=== PATIENT | male | born 1930 | race Caucasian/White ===

== ENCOUNTER 2017-12-02 05:48 | Inpatient (IN) | payer MEDICARE, OTHER ==
[2017-12-02] MEDS ORDERED: Lactated Ringers 1,000 ML IV SCH (06:30)
[2017-12-02] MEDS ORDERED: MORPHINE SULFATE 10 MG/ML ONE (08:02)
[2017-12-02] MEDS ORDERED: Lactated Ringers 2,000 ML IV ONE (08:04)
[2017-12-02] MEDS ORDERED: Sodium Chloride 0.9% 500 ML IV ONE (08:13)
[2017-12-02] MEDS ORDERED: PHENYLEPHRINE HCL 10 MG in Dextrose 5%/Water IV Soln. 250 ML 250 ML IV SCH (08:15)
[2017-12-02 08:26] LABS: Hematocrit 38.6 % (42-50); Hemoglobin 12.5 gm/dl (12.5-18.0); Mean Cell Volume 87.5 fl (78-100); Mean Corpuscular Hemoglobin 28.3 pg (26-32); Mean Corpuscular Hgb Concent. 32.4 g/dl (32-36); Mean Platelet Volume 9.9 fl (6-9.5); Platelet Count 246 K/mm3 (150-450); Red Blood Count 4.41 M/mm3 (4.1-5.6); Red Cell Distribution Width 12.8 % (11.5-14.0); White Blood Count 9.9 K/mm3 (4.0-10.5)
[2017-12-02] MEDS ORDERED: Lactated Ringers 1,000 ML IV ONE ×2 (08:29→13:13)
--- NOTE | 2017-12-02 08:37 | XRAY ---
Indication: Incomplete colonoscopy. Possible perforation. History duodenal ulcer. Multiple contiguous axial images obtained through the abdomen and pelvis without contrast as ordered. Comparison: None Lung bases demonstrates moderate bibasilar dependent atelectasis. Minimal left base pleural thickening with tiny focus of calcified pleural plaquing in the posterior gutter. No consolidation or effusion. Heart is not enlarged. Small hiatal hernia. There is moderate amount of intra-abdominal free air. No free fluid. Noncontrasted stomach and bowel loops appear nonobstructed. Left kidney demonstrates 2 nonobstructing micro-calculi, largest 3 mm in the lower pole. Bilateral renal cysts, largest in the right upper pole measuring 7 cm. No hydronephrosis or hydroureter. 2 punctate calculi seen in the left posterior bladder. Enlarged prostate gland impresses on the base of the bladder. A few hepatic/splenic calcified granulomas. Remaining liver, gallbladder, pancreas, spleen, and adrenal glands appear unremarkable for noncontrast exam.. Moderate aortoiliac calcifications without AAA. Osseous structures intact with mild multilevel degenerative spondylosis and 5 mm L3 spondylolisthesis. Impression: 1. Intra-abdominal free air presumed from perforated bowel. No free fluid. 2. Nonobstructing left renal micro-calculi and urinary bladder micro-calculi. Bilateral renal cysts. 3. Left lung base pleural thickening with calcified pleural plaquing. 4. Small hiatal hernia. 5. 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 Comment: Immediate report will be given to the ordering clinician. CT DI 23.54
[2017-12-02 08:40] LABS: INR 1.09 (0.8-3.0)
[2017-12-02 08:43] LABS: PTT 25.3 SECONDS (24.1-36.1)
[2017-12-02 08:45] LABS: ALBUMIN 3.7 g/dL (3.5-5.0); ALKALINE PHOSPHATASE 79 U/L (38-126); BLOOD UREA NITROGEN 15 mg/dL (9-20); CHLORIDE 107 mmol/L (98-107); Carbon Dioxide 25 mmol/L (22-30); Creatinine 1 0.76 mg/dL (0.66-1.25); Glucose 128 mg/dL (74-106); SGOT/AST 37 U/L (17-59); SGPT/ALT 12 U/L (0-50); SODIUM 142 mmol/L (137-145); Total Protein 6.5 g/dL (6.3-8.2)
[2017-12-02 09:19] LABS: ABO TYPING O; Antibody Screen NEGATIVE (NEGATIVE); RH TYPING NEGATIVE
[2017-12-02 09:51] LABS: A-aADO2 183; ABG HEMOGLOBIN 11.4; ABG POTASSIUM 3.6 (3.5-5.1); ABG SITE ALINE; ARTERIAL BLD GAS O2 SATURATION 99.1 % (95-100); ARTERIAL BLOOD GAS BASE EXCESS -1.5 (-2.0-2.0); ARTERIAL BLOOD GAS FIO2 50 %; ARTERIAL BLOOD GAS PCO2 36 mmHg (35-45); ARTERIAL BLOOD GAS PO2 129 mmHg (75-100); ARTERIAL BLOOD GAS pH 7.41 (7.35-7.45); CARBOXYHEMOGLOBIN 1.4 % THgb (0.0-6.9); HCO3- 22.8 (22-28); HGB O2 SAT 96.5 g/dF (94-100); Methhemoglobin 1.2 % (1.4-1.5); paO2 pAO1 0.41
[2017-12-02] MEDS ORDERED: Magnesium Sulfate 1 GM/2 ML VIAL ONE (10:12)
[2017-12-02] MEDS ORDERED: DEMEROL 25MG SYRINGE IV ONE (11:10)
[2017-12-02] MEDS ORDERED: DEMEROL 25MG SYRINGE ONE (11:11)
--- NOTE | 2017-12-02 11:44 | CONS ---
CONSULT DATE: 12/02/2017 REASON FOR CONSULT: Colon perforation during colonoscopy. HISTORY: This 87 year-old male is a patient of Dr. Woody Flores who was undergoing screening colonoscopy when Dr. Flores was on his way out unable to complete the scope probably got to transverse colon due to tortuosity and noticed a colon perforation in the probably sigmoid colon. He called me immediately for operative intervention after a CT scan was performed which showed free air consistent with colon perforation. The patient does have a moderate amount of abdominal pain but which was improved with IV narcotic. PAST MEDICAL HISTORY: Peptic ulcer disease. PAST SURGICAL HISTORY: Surgery for perforated peptic ulcer. MEDICATIONS: Baby aspirin. ALLERGIES: SULFA. SOCIAL HISTORY: No tobacco. No alcohol. FAMILY HISTORY: Noncontributory. LAB DATA AND TESTS: CT scan with free air. PHYSICAL EXAMINATION: GENERAL: Moderate distress. HEENT: Sclera nonicteric. Extraocular movements intact. OG tube in place. CHEST: Nonlabored breathing. No crepitus. ABDOMEN: Distended, tense, mild diffuse tenderness. EXTREMITIES: No peripheral edema. ASSESSMENT: Iatrogenic colon perforation. PLAN: Plan for exploratory laparotomy with possible repair versus resection with possible reanastomosis vs. colostomy. I discussed in depth with the patient and family members about the risks and benefits of surgery and the potential need for colostomy. The patient really would like to avoid an ostomy if at all possible.
[2017-12-02] MEDS ORDERED: MORPHINE SULFATE 4 MG INJ ONE (11:45)
[2017-12-02] MEDS ORDERED: Morphine PCA 1 MG/ML 30 ML IV PRN ×2 (11:45→12:19)
[2017-12-02] MEDS ORDERED: MORPHINE SULFATE 4 MG INJ IV ONE (11:46)
[2017-12-02] MEDS ORDERED: TYLENOL 325 MG PO PRN (11:48)
[2017-12-02] MEDS ORDERED: FEVERALL 650 MG RC PRN (11:48)
--- NOTE | 2017-12-02 12:06 | PCM.HP ---
History of Present Illness - Chief Complaint Chief Complaint: routine History of Present Illness: is a 87 year old male who had complications related to a colonoscopy this morning, there was evidence of colon perforation at the time of colonoscopy, stat CT abd/pelvis showed free confirming perforation. Dr Popeye Leal immediately took the patient to the OR and performed a segmental sigmoid colon resection. His vitals are currently stable post-operatively in the ICU, oxygen saturation and heart rate are stable. He did not require any pressors during the procedure. He has no known medical problems and is quite active. - Review of Systems All Other Systems: Unable due to condition Medications & Allergies Home Medications: Home Medication List Aspirin EC 81 mg [Ecotrin 81 mg] 81 mg PO DAILY 11/30/17 [History Confirmed 12/02/17] Allergies/Adverse Reactions: Allergies Allergy/AdvReac Type Severity Reaction Status Date / Time Sulfa (Sulfonamide AdvReac Mild " felt run Verified 12/02/17 06:07 Antibiotics) down" - Past Medical History Past Medical History: No Neurological History: No Pertinent History ENT History: No Pertinent History Cardiac History: No Pertinent History Respiratory History: No Pertinent History Endocrine Medical History: No Pertinent History Musculoskelatal History: No Pertinent History GI Medical History: Ulcer History: No Pertinent History Pyscho-Social History: No Pertinent History Male Reproductive Disorders: No Pertinent History Comment: duodenal ulcer - Past Surgical History Past Surgical History: Yes Neuro Surgical History: No Pertinent History Cardiac History: No Pertinent History Respiratory Surgery: No Pertinent History GI Surgical History: Other Genitourinary Surgical Hx: No Pertinent History Musculskeletal Surgical Hx: No Pertinent History Male Surgical History: No Pertinent History Other Surgical History: PARTIAL STOMACH REMOVED FOR ULCER "at least 50 yrs ago", TONSILS - Social History Smoking Status: Never smoker Exposure to second hand smoke: No Alcohol: None Drug Use: none - Physical Exam Vital Signs: Vital Signs - 24 hr Temp Pulse Resp BP BP Pulse Ox 12/02/17 11:27 98.1 F 84 8 L 175/106 184/73 92 L 12/02/17 06:17 96.5 F 55 L 16 142/83 92 L 12/02/17 06:13 96.5 F 55 L 16 142/83 92 L Oxygen-Last 24 hours O2 Percentage 6 Liters = 44% Oxygen Flowrate (L/min)-RT 6 General Appearance: no apparent distress Neurologic Exam: other (patient slightly confused, currently awakening from anesthesia. extubated with no problems) Eye Exam: PERRL/EOMI, eyes nml inspection Respiratory Exam: normal breath sounds, lungs clear, No respiratory distress Cardiovascular Exam: regular rate/rhythm, normal heart sounds, normal peripheral pulses Gastrointestinal/Abdomen Exam: soft, normal bowel sounds, tenderness, other ( dressing c/d/i, REINIER drain in place), No mass Male Genitalia Exam: other (maradiaga anchored) Results - Labs Lab/Micro Results: Lab Results-Last 24 Hours 12/02/17 12/02/17 12/02/17 Range/Units 08:15 08:15 08:15 WBC 9.9 (4.0-10.5) K/mm3 RBC 4.41 (4.1-5.6) M/mm3 Hgb 12.5 (12.5-18.0) gm/dl Hct 38.6 L (42-50) % MCV 87.5 (78-100) fl MCH 28.3 (26-32) pg MCHC 32.4 (32-36) g/dl RDW 12.8 (11.5-14.0) % Plt Count 246 (150-450) K/mm3 MPV 9.9 H (6-9.5) fl PT 12.1 (8.83-12.87) SECONDS INR 1.09 (0.8-3.0) APTT 25.3 (24.1-36.1) SECONDS Puncture Site pCO2 (35-45) mmHg pO2 (75-100) mmHg Base Excess (-2.0-2.0) O2 Saturation (94-100) g/dF ABG pH (7.35-7.45) ABG HCO3 (22-28) ABG O2 Sat (Measured) (95-100) % Grover Test A-a Gradient a/A Ratio Hemoglobin Carboxyhemoglobin (0.0-6.9) % THgb Methemoglobin (1.4-1.5) % Temperature C POC O2 Flow Rate % Sodium 142 (137-145) mmol/L Potassium 4.0 (3.5-5.1) mmol/L Chloride 107 (98-107) mmol/L Carbon Dioxide 25 (22-30) mmol/L Anion Gap 13.0 (5-15) MEQ/L BUN 15 (9-20) mg/dL Creatinine 0.76 (0.66-1.25) mg/dL Estimated GFR > 60.0 ML/MIN Glucose 128 H (74-106) mg/dL Lactic Acid (0.4-2.0) Calcium 9.0 (8.4-10.2) mg/dL Magnesium (1.6-2.3) mg/dL Total Bilirubin 1.90 H (0.2-1.3) mg/dL AST 37 (17-59) U/L ALT 12 (0-50) U/L Alkaline Phosphatase 79 (38-126) U/L Serum Total Protein 6.5 (6.3-8.2) g/dL Albumin 3.7 (3.5-5.0) g/dL ABO Group Rh Factor Antibody Screen (NEGATIVE) Crossmatch (COMPATIBLE) 12/02/17 12/02/17 12/02/17 Range/Units 08:15 08:15 08:15 WBC (4.0-10.5) K/mm3 RBC (4.1-5.6) M/mm3 Hgb (12.5-18.0) gm/dl Hct (42-50) % MCV (78-100) fl MCH (26-32) pg MCHC (32-36) g/dl RDW (11.5-14.0) % Plt Count (150-450) K/mm3 MPV (6-9.5) fl PT (8.83-12.87) SECONDS INR (0.8-3.0) APTT (24.1-36.1) SECONDS Puncture Site pCO2 (35-45) mmHg pO2 (75-100) mmHg Base Excess (-2.0-2.0) O2 Saturation (94-100) g/dF ABG pH (7.35-7.45) ABG HCO3 (22-28) ABG O2 Sat (Measured) (95-100) % Grover Test A-a Gradient a/A Ratio Hemoglobin Carboxyhemoglobin (0.0-6.9) % THgb Methemoglobin (1.4-1.5) % Temperature C POC O2 Flow Rate % Sodium (137-145) mmol/L Potassium (3.5-5.1) mmol/L Chloride (98-107) mmol/L Carbon Dioxide (22-30) mmol/L Anion Gap (5-15) MEQ/L BUN (9-20) mg/dL Creatinine (0.66-1.25) mg/dL Estimated GFR ML/MIN Glucose (74-106) mg/dL Lactic Acid (0.4-2.0) Calcium (8.4-10.2) mg/dL Magnesium (1.6-2.3) mg/dL Total Bilirubin (0.2-1.3) mg/dL AST (17-59) U/L ALT (0-50) U/L Alkaline Phosphatase (38-126) U/L Serum Total Protein (6.3-8.2) g/dL Albumin (3.5-5.0) g/dL ABO Group O Rh Factor NEGATIVE Antibody Screen NEGATIVE (NEGATIVE) Crossmatch COMPATIBLE COMPATIBLE COMPATIBLE (COMPATIBLE) 12/02/17 12/02/17 12/02/17 Range/Units 08:15 08:36 09:41 WBC (4.0-10.5) K/mm3 RBC (4.1-5.6) M/mm3 Hgb (12.5-18.0) gm/dl Hct (42-50) % MCV (78-100) fl MCH (26-32) pg MCHC (32-36) g/dl RDW (11.5-14.0) % Plt Count (150-450) K/mm3 MPV (6-9.5) fl PT (8.83-12.87) SECONDS INR (0.8-3.0) APTT (24.1-36.1) SECONDS Puncture Site WILFRIDO pCO2 36 (35-45) mmHg pO2 129 H* (75-100) mmHg Base Excess -1.5 (-2.0-2.0) O2 Saturation 96.5 (94-100) g/dF ABG pH 7.41 (7.35-7.45) ABG HCO3 22.8 (22-28) ABG O2 Sat (Measured) 99.1 (95-100) % Grover Test NOT APPLICABLE A-a Gradient 183 a/A Ratio 0.41 Hemoglobin 11.4 Carboxyhemoglobin 1.4 (0.0-6.9) % THgb Methemoglobin 1.2 L (1.4-1.5) % Temperature 37.0 C POC O2 Flow Rate 50 % Sodium (137-145) mmol/L Potassium 3.6 (3.5-5.1) mmol/L Chloride (98-107) mmol/L Carbon Dioxide (22-30) mmol/L Anion Gap (5-15) MEQ/L BUN (9-20) mg/dL Creatinine (0.66-1.25) mg/dL Estimated GFR ML/MIN Glucose (74-106) mg/dL Lactic Acid 2.0 (0.4-2.0) Calcium (8.4-10.2) mg/dL Magnesium (1.6-2.3) mg/dL Total Bilirubin (0.2-1.3) mg/dL AST (17-59) U/L ALT (0-50) U/L Alkaline Phosphatase (38-126) U/L Serum Total Protein (6.3-8.2) g/dL Albumin (3.5-5.0) g/dL ABO Group Rh Factor Antibody Screen (NEGATIVE) Crossmatch COMPATIBLE (COMPATIBLE) 12/02/17 12/02/17 Range/Units 09:42 09:50 WBC (4.0-10.5) K/mm3 RBC (4.1-5.6) M/mm3 Hgb (12.5-18.0) gm/dl Hct (42-50) % MCV (78-100) fl MCH (26-32) pg MCHC (32-36) g/dl RDW (11.5-14.0) % Plt Count (150-450) K/mm3 MPV (6-9.5) fl PT (8.83-12.87) SECONDS INR (0.8-3.0) APTT (24.1-36.1) SECONDS Puncture Site pCO2 (35-45) mmHg pO2 (75-100) mmHg Base Excess (-2.0-2.0) O2 Saturation (94-100) g/dF ABG pH (7.35-7.45) ABG HCO3 (22-28) ABG O2 Sat (Measured) (95-100) % Grover Test A-a Gradient a/A Ratio Hemoglobin Carboxyhemoglobin (0.0-6.9) % THgb Methemoglobin (1.4-1.5) % Temperature C POC O2 Flow Rate % Sodium (137-145) mmol/L Potassium (3.5-5.1) mmol/L Chloride (98-107) mmol/L Carbon Dioxide (22-30) mmol/L Anion Gap (5-15) MEQ/L BUN (9-20) mg/dL Creatinine (0.66-1.25) mg/dL Estimated GFR ML/MIN Glucose (74-106) mg/dL Lactic Acid 1.8 (0.4-2.0) Calcium (8.4-10.2) mg/dL Magnesium 1.6 (1.6-2.3) mg/dL Total Bilirubin (0.2-1.3) mg/dL AST (17-59) U/L ALT (0-50) U/L Alkaline Phosphatase (38-126) U/L Serum Total Protein (6.3-8.2) g/dL Albumin (3.5-5.0) g/dL ABO Group Rh Factor Antibody Screen (NEGATIVE) Crossmatch (COMPATIBLE) - Radiology Impressions Radiology Exams & Impressions: Radiology Procedures Category Date Time Status ABDOMEN AND PELVIS W/0 CONTRAS [CT] Routine Exams 12/02/17 07:59 Completed - Other Procedures and Tests Respiratory Therapy 12/02/17 11:18 Oxygen NASAL CANNULA 4 lpm 12/02/17 11:19 Incentive Spirometry Assessmen TID Assessment/Plan (1) Perforated sigmoid colon Current Visit: Yes Status: Acute Assessment & Plan: ordered for Zosyn 3.375g IV q6hrs, patient did not appear to have gross contamination of peritoneal cavity at time of procedure. will monitor closely at this time, has a morphine BASEBALL WINDER for postoperative pain, was given magnesium 2g IV rider during surgery. will repeat labs in the am. currently he is hemodynamically stable. Code(s): K63.1 - PERFORATION OF INTESTINE (NONTRAUMATIC)
[2017-12-02] MEDS: Zosyn 3.375GM/100 Ml D5W 3.375 GM/100 ML IVPB IV SCH ×3 (12:12→23:36)
[2017-12-02] MEDS: Dextrose 5%-Lr IV Solution 1000 ML 1,000 ML IV SCH ×2 (12:18→23:35)
--- NOTE | 2017-12-02 12:23 | OP ---
SURGERY DATE/TIME: 12/02/2017 0855 PREOPERATIVE DIAGNOSIS: Iatrogenic colon perforation after colonoscopy. POSTOPERATIVE DIAGNOSIS: Sigmoid colon perforation. PROCEDURES: 1) Exploratory laparotomy. 2) Segmental sigmoid resection with colorectal anastomosis. 3) Flexible sigmoidoscopy. SURGEON: Popeye Leal M.D. ROUTE SERVICE REPRESENTATIVE SURGEON: Woody Flores M.D. ANESTHESIA: General. SPECIMEN: Segmental sigmoid colon and anastomotic ring. ESTIMATED BLOOD LOSS: 20. FINDINGS: Large 3 to 4 cm full thickness tear in the sigmoid colon near the rectosigmoid junction. PATIENT PRESENTATION: This patient was having a screening colonoscopy that was unable to be completed. There were no interventions performed and on the way out the endoscopist noticed seeing intra-abdominal fat and I was called for management of the colon perforation. After discussing risks and benefits of surgery with the patient and family the patient wishes to proceed. DESCRIPTION OF PROCEDURE: The patient was brought to the operating room and placed supine in lithotomy positioning, placed under general endotracheal anesthesia. The abdomen was prepped and draped in sterile fashion. Midline laparotomy was performed from a couple centimeters above the umbilicus down to the pubis with scalpel this was taken down to the fascia with electrocautery. The fascia was incised with electrocautery. The peritoneum was lifted up with clamps and incised sharply with Metzenbaum scissors. The abdomen was entered and then the peritoneum was opened up with electrocautery under direct visualization. Once the abdomen was opened the abdomen was explored. There was no contamination at all. The right colon, transverse colon and left colon appeared normal. The small bowel appeared normal. There was a large 3 to 4 cm full thickness perforation in the sigmoid colon at the rectosigmoid junction this was much too large for primary repair. Attention was then turned to perform segmental sigmoid resection. There were some adhesions to the left side wall and these were taken down with electrocautery. The left colon was freed up somewhat off of the pelvic side wall and the retroperitoneum along the line of Toldt. The sigmoid colon was completely freed from the side wall. Distal to the perforation a rent was made in the mesentery and the colon free off circumferentially. The colon was then stapled with contour stapler. The mesentery was taken proximally to good healthy colon above the perforation. The site of transection was planned several centimeters above the perforation and circumferentially freed off. Next, a 25 KD sizer was inserted through the perforation proximally to evaluate the proximal bowel. A 25 fit with minimal stretching however this was the largest size his colon could accommodate. A 25 EEA stapler was opened. The anvil was placed up through the rent in the colon and out the anti-mesenteric site 2 cm proximal to the planned transection point. After this was pushed out the colon was transected with a 75 EEA green load stapler and the specimen was handed off. A 25 sizer was then placed up through the rectum and fit well in the rectal stump. Next, the 25 EEA stapler was placed up into EEA stump. The pin was pushed out just anterior to the staple line and the anvil connected to the pin. The sigmoid colon laid completely flat with no twisting of the mesentery and the end-to-side anastomosis was created. The stapler was closed and fired and the stapler removed. The anastomosis appeared intact with definitely no tension at all. Next, the proximal bowel was clamped off and endoscope was advanced into the anus and rectum and the anastomosis evaluated. The anastomosis appeared completely intact with no active bleeding and there were no air bubbles in the belly in which the pelvis was filled with saline. The rectum was desufflated. The scope withdrawn. At this point everyone changed gown and gloves. The abdomen was then copiously irrigated and suctioned dry. A 10 REINIER was placed in the right lower quadrant down into the pelvis. The abdomen was closed with 0 PDS looped suture in a running fashion starting from the top and the bottom and tying the sutures in the middle. The skin was closed with georgina loosely with quarter-inch Iodoform packing in between. Dressing was applied. The patient was recovered and taken to PACU in stable condition.
--- NOTE | 2017-12-02 13:56 | OP ---
SURGERY DATE/TIME: 12/02/2017701 PREOPERATIVE DIAGNOSIS: Follow up screening colonoscopy. POSTOPERATIVE DIAGNOSIS: Inadvertent perforation of the sigmoid colon. PROCEDURE: Colonoscopy. SURGEON: Woody Flores M.D. ANESTHESIA: MAC by Eduard Womack CRNA. ESTIMATED BLOOD LOSS: Minimal. SPECIMENS: None. DESCRIPTION OF PROCEDURE: After informed written consent was obtained, the patient was taken to the endoscopy suite. He underwent monitored anesthesia and a digital rectal exam showed normal sphincter tone and no internal lesions. The scope was inserted into the rectum and the colonic mucosa was traversed with difficulty due to tortuosity and small caliber of colon and sigmoid region. Approximately the level of the hepatic flexure was reached and the scope was unable to be advanced any further. At this point the scope began to be withdrawn. In the lower sigmoid colon there was concern for perforation due to some blood in the lumen and visible fat. The scope was immediately removed and the patient was taken straight to the CT scan room for further evaluation of sigmoid perforation.
[2017-12-02] MEDS ORDERED: MORPHINE SULFATE 4 MG INJ IV PRN (14:51)
[2017-12-02] MEDS ORDERED: Quelicin Fliptop 200 MG/10 ML IV ONE (16:14)
[2017-12-02] MEDS ORDERED: DIPRIVAN 200 MG/20 ML IV ONE (16:14)
[2017-12-02] MEDS ORDERED: BRIDION 200MG/2ML IV ONE (16:14)
[2017-12-02] MEDS ORDERED: SUBLIMAZE 250 MCG/5 ML IV ONE (16:14)
[2017-12-02] MEDS ORDERED: PHENYLEPHRINE HCL IV ONE (16:14)
[2017-12-02] MEDS ORDERED: Amidate 20 MG/10 ML IV ONE (16:14)
[2017-12-02] MEDS ORDERED: MORPHINE SULFATE 10 MG/ML IV ONE (16:14)
[2017-12-02] MEDS ORDERED: Zofran 4 MG/2 ML VIAL IV ONE (16:14)
[2017-12-02] MEDS ORDERED: Decadron 4 MG INJ IV ONE (16:14)
[2017-12-02] MEDS ORDERED: ROBINUL IV ONE (16:14)
[2017-12-02] MEDS ORDERED: Zemuron 100 MG/10 ML IV ONE (16:14)
[2017-12-02] MEDS ORDERED: Versed 2 MG/2 ML Injection IV ONE (16:14)
[2017-12-03 04:58] LABS: BASOPHIL % 0.2 % (0.0-0.4); Basophil (Absolute #) 0.02 (0-0.4); Eosinophil % 0.1 % (0.00-5.0); Eosinophil (Absolute #) 0.01 (0-0.5); Hematocrit 37.8 % (42-50); Hemoglobin 12.1 gm/dl (12.5-18.0); Lymphocyte (Absolute #) 1.58 (1.0-4.6); Mean Cell Volume 88.9 fl (78-100); Mean Platelet Volume 10.3 fl (6-9.5); Monocyte (Absolute #) 0.69 (0.0-1.3); Monocytes % 5.7 % (0.0-12.0); Platelet Count 201 K/mm3 (150-450); Red Blood Count 4.25 M/mm3 (4.1-5.6); Red Cell Distribution Width 12.9 % (11.5-14.0); White Blood Count 12.2 K/mm3 (4.0-10.5)
[2017-12-03 05:08] LABS: Mean Corpuscular Hemoglobin 28.4 pg (26-32)
[2017-12-03 05:31] LABS: ALBUMIN 3.3 g/dL (3.5-5.0); ALKALINE PHOSPHATASE 55 U/L (38-126); ANION GAP 10.8 MEQ/L (5-15); BLOOD UREA NITROGEN 12 mg/dL (9-20); CHLORIDE 103 mmol/L (98-107); Calcium 8.6 mg/dL (8.4-10.2); Carbon Dioxide 28 mmol/L (22-30); Creatinine 1 0.77 mg/dL (0.66-1.25); Glucose 120 mg/dL (74-106); Potassium 4.2 mmol/L (3.5-5.1); SGOT/AST 41 U/L (17-59); SGPT/ALT 13 U/L (0-50); SODIUM 138 mmol/L (137-145)
[2017-12-03] MEDS: Zosyn 3.375GM/100 Ml D5W 3.375 GM/100 ML IVPB IV SCH ×4 (06:19→23:28)
--- NOTE | 2017-12-03 08:08 | PCM.NOTE ---
Date and Time: 12/03/17805 Subjective Assessment: patient doing well this morning, pain is controlled. has been restless through the night but he is alert and answering questions appropriately Objective Exam General Appearance: no apparent distress Neurologic Exam: alert, oriented x 3 Skin Exam: normal color, warm, dry Respiratory Exam: normal breath sounds, lungs clear, No respiratory distress Cardiovascular Exam: regular rate/rhythm, normal heart sounds Gastrointestinal/Abdomen Exam: soft, other (mild shadowing of dressing, soft. serosang. fluid in REINIER) OBJECTIVE DATA Vital Signs: Vital Signs - 24 hr Temp Pulse Resp BP BP BP Pulse Ox 12/03/17 07:00 61 17 122/60 93 L 12/03/17 06:51 14 90 L 12/03/17 06:50 14 86 L 12/03/17 04:00 98.5 F 62 9 L 109/51 95 12/03/17 01:18 93 L 12/03/17 00:01 67 12/02/17 23:43 98.2 F 71 14 93 L 12/02/17 23:42 94 L 12/02/17 23:00 66 12 133/63 107/54 94 L 12/02/17 22:00 75 17 138/104 94 L 12/02/17 21:00 67 12 133/63 95 12/02/17 20:00 98.3 F 72 19 125/62 94 L 12/02/17 19:59 75 20 96 12/02/17 19:00 71 14 118/55 94 L 12/02/17 17:51 73 14 118/55 122/64 94 L 12/02/17 16:59 77 21 143/78 95 12/02/17 15:50 98 F 76 16 147/77 94 L 12/02/17 14:52 98.1 F 74 18 132/82 132/99 93 L 12/02/17 14:16 74 18 93 L 12/02/17 14:00 80 14 154/67 154/75 94 L 12/02/17 12:54 79 14 141/75 156/79 95 12/02/17 12:30 75 12 141/75 150/89 93 L 12/02/17 12:00 84 16 157/89 155/92 92 L 12/02/17 11:27 98.1 F 84 8 L 175/106 184/73 92 L 12/02/17 11:15 98.1 F 91 H 14 175/106 220/124 94 L Oxygen-Last 24 hours O2 Percentage 5 Liters = 40% O2 Percentage 5 Liters = 40% O2 Percentage 4 Liters = 36% O2 Percentage 4 Liters = 36% O2 Percentage 4 Liters = 36% O2 Percentage 4 Liters = 36% O2 Percentage 4 Liters = 36% O2 Percentage 4 Liters = 36% O2 Percentage 4 Liters = 36% O2 Percentage 6 Liters = 44% O2 Percentage 6 Liters = 44% O2 Percentage 6 Liters = 44% O2 Percentage 6 Liters = 44% O2 Percentage 6 Liters = 44% O2 Percentage 6 Liters = 44% O2 Percentage 6 Liters = 44% O2 Percentage 6 Liters = 44% O2 Percentage 6 Liters = 44% O2 Percentage 6 Liters = 44% Oxygen Flowrate (L/min)-RT 6 Oxygen Flowrate (L/min)-RT 6 Oxygen Flowrate (L/min)-RT 6 Oxygen Flowrate (L/min)-RT 6 Oxygen Flowrate (L/min)-RT 6 Oxygen Flowrate (L/min)-RT 6 Oxygen Flowrate (L/min)-RT 6 Oxygen Flowrate (L/min)-RT 6 Oxygen Flowrate (L/min)-RT 6 Pain Assessment - Last Documented Pain Intensity 7 Pain Scale Used 0-10 Pain Scale Intake and Output: Intake & Output 11/30/17 12/01/17 12/02/17 12/03/17 11:59 11:59 11:59 11:59 Intake Total 1915 Output Total 1665 Balance 250 Weight 71.3 kg 75.6 kg Lab Results: Lab Results-Last 24 Hours 12/02/17 12/02/17 12/02/17 Range/Units 08:15 08:15 08:15 WBC 9.9 (4.0-10.5) K/mm3 RBC 4.41 (4.1-5.6) M/mm3 Hgb 12.5 (12.5-18.0) gm/dl Hct 38.6 L (42-50) % MCV 87.5 (78-100) fl MCH 28.3 (26-32) pg MCHC 32.4 (32-36) g/dl RDW 12.8 (11.5-14.0) % Plt Count 246 (150-450) K/mm3 MPV 9.9 H (6-9.5) fl Gran % (36.0-66.0) % Eos # (Auto) (0-0.5) Absolute Lymphs (auto) (1.0-4.6) Absolute Monos (auto) (0.0-1.3) Lymphocytes % (24.0-44.0) % Monocytes % (0.0-12.0) % Eosinophils % (0.00-5.0) % Basophils % (0.0-0.4) % Absolute Granulocytes (1.4-6.9) Basophils # (0-0.4) PT 12.1 (8.83-12.87) SECONDS INR 1.09 (0.8-3.0) APTT 25.3 (24.1-36.1) SECONDS Puncture Site pCO2 (35-45) mmHg pO2 (75-100) mmHg Base Excess (-2.0-2.0) O2 Saturation (94-100) g/dF ABG pH (7.35-7.45) ABG HCO3 (22-28) ABG O2 Sat (Measured) (95-100) % Grover Test A-a Gradient a/A Ratio Hemoglobin Carboxyhemoglobin (0.0-6.9) % THgb Methemoglobin (1.4-1.5) % Temperature C POC O2 Flow Rate % Sodium 142 (137-145) mmol/L Potassium 4.0 (3.5-5.1) mmol/L Chloride 107 (98-107) mmol/L Carbon Dioxide 25 (22-30) mmol/L Anion Gap 13.0 (5-15) MEQ/L BUN 15 (9-20) mg/dL Creatinine 0.76 (0.66-1.25) mg/dL Estimated GFR > 60.0 ML/MIN Glucose 128 H (74-106) mg/dL Lactic Acid (0.4-2.0) Calcium 9.0 (8.4-10.2) mg/dL Magnesium (1.6-2.3) mg/dL Total Bilirubin 1.90 H (0.2-1.3) mg/dL AST 37 (17-59) U/L ALT 12 (0-50) U/L Alkaline Phosphatase 79 (38-126) U/L Serum Total Protein 6.5 (6.3-8.2) g/dL Albumin 3.7 (3.5-5.0) g/dL ABO Group Rh Factor Antibody Screen (NEGATIVE) Crossmatch (COMPATIBLE) 12/02/17 12/02/17 12/02/17 Range/Units 08:15 08:15 08:15 WBC (4.0-10.5) K/mm3 RBC (4.1-5.6) M/mm3 Hgb (12.5-18.0) gm/dl Hct (42-50) % MCV (78-100) fl MCH (26-32) pg MCHC (32-36) g/dl RDW (11.5-14.0) % Plt Count (150-450) K/mm3 MPV (6-9.5) fl Gran % (36.0-66.0) % Eos # (Auto) (0-0.5) Absolute Lymphs (auto) (1.0-4.6) Absolute Monos (auto) (0.0-1.3) Lymphocytes % (24.0-44.0) % Monocytes % (0.0-12.0) % Eosinophils % (0.00-5.0) % Basophils % (0.0-0.4) % Absolute Granulocytes (1.4-6.9) Basophils # (0-0.4) PT (8.83-12.87) SECONDS INR (0.8-3.0) APTT (24.1-36.1) SECONDS Puncture Site pCO2 (35-45) mmHg pO2 (75-100) mmHg Base Excess (-2.0-2.0) O2 Saturation (94-100) g/dF ABG pH (7.35-7.45) ABG HCO3 (22-28) ABG O2 Sat (Measured) (95-100) % Grover Test A-a Gradient a/A Ratio Hemoglobin Carboxyhemoglobin (0.0-6.9) % THgb Methemoglobin (1.4-1.5) % Temperature C POC O2 Flow Rate % Sodium (137-145) mmol/L Potassium (3.5-5.1) mmol/L Chloride (98-107) mmol/L Carbon Dioxide (22-30) mmol/L Anion Gap (5-15) MEQ/L BUN (9-20) mg/dL Creatinine (0.66-1.25) mg/dL Estimated GFR ML/MIN Glucose (74-106) mg/dL Lactic Acid (0.4-2.0) Calcium (8.4-10.2) mg/dL Magnesium (1.6-2.3) mg/dL Total Bilirubin (0.2-1.3) mg/dL AST (17-59) U/L ALT (0-50) U/L Alkaline Phosphatase (38-126) U/L Serum Total Protein (6.3-8.2) g/dL Albumin (3.5-5.0) g/dL ABO Group O Rh Factor NEGATIVE Antibody Screen NEGATIVE (NEGATIVE) Crossmatch COMPATIBLE COMPATIBLE COMPATIBLE (COMPATIBLE) 12/02/17 12/02/17 12/02/17 Range/Units 08:15 08:36 09:41 WBC (4.0-10.5) K/mm3 RBC (4.1-5.6) M/mm3 Hgb (12.5-18.0) gm/dl Hct (42-50) % MCV (78-100) fl MCH (26-32) pg MCHC (32-36) g/dl RDW (11.5-14.0) % Plt Count (150-450) K/mm3 MPV (6-9.5) fl Gran % (36.0-66.0) % Eos # (Auto) (0-0.5) Absolute Lymphs (auto) (1.0-4.6) Absolute Monos (auto) (0.0-1.3) Lymphocytes % (24.0-44.0) % Monocytes % (0.0-12.0) % Eosinophils % (0.00-5.0) % Basophils % (0.0-0.4) % Absolute Granulocytes (1.4-6.9) Basophils # (0-0.4) PT (8.83-12.87) SECONDS INR (0.8-3.0) APTT (24.1-36.1) SECONDS Puncture Site WILFRIDO pCO2 36 (35-45) mmHg pO2 129 H* (75-100) mmHg Base Excess -1.5 (-2.0-2.0) O2 Saturation 96.5 (94-100) g/dF ABG pH 7.41 (7.35-7.45) ABG HCO3 22.8 (22-28) ABG O2 Sat (Measured) 99.1 (95-100) % Grover Test NOT APPLICABLE A-a Gradient 183 a/A Ratio 0.41 Hemoglobin 11.4 Carboxyhemoglobin 1.4 (0.0-6.9) % THgb Methemoglobin 1.2 L (1.4-1.5) % Temperature 37.0 C POC O2 Flow Rate 50 % Sodium (137-145) mmol/L Potassium 3.6 (3.5-5.1) mmol/L Chloride (98-107) mmol/L Carbon Dioxide (22-30) mmol/L Anion Gap (5-15) MEQ/L BUN (9-20) mg/dL Creatinine (0.66-1.25) mg/dL Estimated GFR ML/MIN Glucose (74-106) mg/dL Lactic Acid 2.0 (0.4-2.0) Calcium (8.4-10.2) mg/dL Magnesium (1.6-2.3) mg/dL Total Bilirubin (0.2-1.3) mg/dL AST (17-59) U/L ALT (0-50) U/L Alkaline Phosphatase (38-126) U/L Serum Total Protein (6.3-8.2) g/dL Albumin (3.5-5.0) g/dL ABO Group Rh Factor Antibody Screen (NEGATIVE) Crossmatch COMPATIBLE (COMPATIBLE) 12/02/17 12/02/17 12/03/17 Range/Units 09:42 09:50 04:40 WBC 12.2 H (4.0-10.5) K/mm3 RBC 4.25 (4.1-5.6) M/mm3 Hgb 12.1 L (12.5-18.0) gm/dl Hct 37.8 L (42-50) % MCV 88.9 (78-100) fl MCH 28.4 (26-32) pg MCHC 32.0 (32-36) g/dl RDW 12.9 (11.5-14.0) % Plt Count 201 (150-450) K/mm3 MPV 10.3 H (6-9.5) fl Gran % 81.0 H (36.0-66.0) % Eos # (Auto) 0.01 (0-0.5) Absolute Lymphs (auto) 1.58 (1.0-4.6) Absolute Monos (auto) 0.69 (0.0-1.3) Lymphocytes % 13.0 L (24.0-44.0) % Monocytes % 5.7 (0.0-12.0) % Eosinophils % 0.1 (0.00-5.0) % Basophils % 0.2 (0.0-0.4) % Absolute Granulocytes 9.90 H (1.4-6.9) Basophils # 0.02 (0-0.4) PT (8.83-12.87) SECONDS INR (0.8-3.0) APTT (24.1-36.1) SECONDS Puncture Site pCO2 (35-45) mmHg pO2 (75-100) mmHg Base Excess (-2.0-2.0) O2 Saturation (94-100) g/dF ABG pH (7.35-7.45) ABG HCO3 (22-28) ABG O2 Sat (Measured) (95-100) % Grover Test A-a Gradient a/A Ratio Hemoglobin Carboxyhemoglobin (0.0-6.9) % THgb Methemoglobin (1.4-1.5) % Temperature C POC O2 Flow Rate % Sodium (137-145) mmol/L Potassium (3.5-5.1) mmol/L Chloride (98-107) mmol/L Carbon Dioxide (22-30) mmol/L Anion Gap (5-15) MEQ/L BUN (9-20) mg/dL Creatinine (0.66-1.25) mg/dL Estimated GFR ML/MIN Glucose (74-106) mg/dL Lactic Acid 1.8 (0.4-2.0) Calcium (8.4-10.2) mg/dL Magnesium 1.6 (1.6-2.3) mg/dL Total Bilirubin (0.2-1.3) mg/dL AST (17-59) U/L ALT (0-50) U/L Alkaline Phosphatase (38-126) U/L Serum Total Protein (6.3-8.2) g/dL Albumin (3.5-5.0) g/dL ABO Group Rh Factor Antibody Screen (NEGATIVE) Crossmatch (COMPATIBLE) 12/03/17 Range/Units 04:40 WBC (4.0-10.5) K/mm3 RBC (4.1-5.6) M/mm3 Hgb (12.5-18.0) gm/dl Hct (42-50) % MCV (78-100) fl MCH (26-32) pg MCHC (32-36) g/dl RDW (11.5-14.0) % Plt Count (150-450) K/mm3 MPV (6-9.5) fl Gran % (36.0-66.0) % Eos # (Auto) (0-0.5) Absolute Lymphs (auto) (1.0-4.6) Absolute Monos (auto) (0.0-1.3) Lymphocytes % (24.0-44.0) % Monocytes % (0.0-12.0) % Eosinophils % (0.00-5.0) % Basophils % (0.0-0.4) % Absolute Granulocytes (1.4-6.9) Basophils # (0-0.4) PT (8.83-12.87) SECONDS INR (0.8-3.0) APTT (24.1-36.1) SECONDS Puncture Site pCO2 (35-45) mmHg pO2 (75-100) mmHg Base Excess (-2.0-2.0) O2 Saturation (94-100) g/dF ABG pH (7.35-7.45) ABG HCO3 (22-28) ABG O2 Sat (Measured) (95-100) % Grover Test A-a Gradient a/A Ratio Hemoglobin Carboxyhemoglobin (0.0-6.9) % THgb Methemoglobin (1.4-1.5) % Temperature C POC O2 Flow Rate % Sodium 138 (137-145) mmol/L Potassium 4.2 (3.5-5.1) mmol/L Chloride 103 (98-107) mmol/L Carbon Dioxide 28 (22-30) mmol/L Anion Gap 10.8 (5-15) MEQ/L BUN 12 (9-20) mg/dL Creatinine 0.77 (0.66-1.25) mg/dL Estimated GFR > 60.0 ML/MIN Glucose 120 H (74-106) mg/dL Lactic Acid (0.4-2.0) Calcium 8.6 (8.4-10.2) mg/dL Magnesium 2.0 (1.6-2.3) mg/dL Total Bilirubin 2.80 H (0.2-1.3) mg/dL AST 41 (17-59) U/L ALT 13 (0-50) U/L Alkaline Phosphatase 55 (38-126) U/L Serum Total Protein 6.0 L (6.3-8.2) g/dL Albumin 3.3 L (3.5-5.0) g/dL ABO Group Rh Factor Antibody Screen (NEGATIVE) Crossmatch (COMPATIBLE) Radiology Exams: Radiology Procedures Category Date Time Status ABDOMEN AND PELVIS W/0 CONTRAS [CT] Routine Exams 12/02/17 07:59 Completed Assessment/Plan (1) Perforated sigmoid colon Current Visit: Yes Status: Acute Assessment & Plan: up to chair today, continue zosyn at this time, will d/c maradiaga when up if does well. continue NG to LIS Code(s): K63.1 - PERFORATION OF INTESTINE (NONTRAUMATIC)
[2017-12-03] MEDS ORDERED: Morphine PCA 1 MG/ML 30 ML IV PRN (09:09)
[2017-12-03] MEDS: Dextrose 5%-Lr IV Solution 1000 ML 1,000 ML IV SCH ×2 (10:15→21:24)
[2017-12-03] MEDS: CEPACOL SORE THROAT LOZENGE PO PRN (10:27)
[2017-12-03] MEDS: MORPHINE SULFATE 4 MG INJ IV PRN ×2 (13:23→15:30)
[2017-12-03] MEDS: BENADRYL 50 MG/ML IV PRN ×2 (17:25→22:55)
[2017-12-04] MEDS: Zosyn 3.375GM/100 Ml D5W 3.375 GM/100 ML IVPB IV SCH ×3 (05:44→18:48)
[2017-12-04 05:51] LABS: BASOPHIL % 0.5 % (0.0-0.4); Basophil (Absolute #) 0.06 (0-0.4); Eosinophil % 0.7 % (0.00-5.0); Eosinophil (Absolute #) 0.09 (0-0.5); Granulocyte Absolute (ANC) 10.14 (1.4-6.9); Granulocytes % 79.6 % (36.0-66.0); Hematocrit 37.9 % (42-50); Lymphocyte (Absolute #) 1.64 (1.0-4.6); Lymphocytes % 12.9 % (24.0-44.0); Mean Corpuscular Hgb Concent. 31.7 g/dl (32-36); Mean Platelet Volume 10.2 fl (6-9.5); Monocytes % 6.3 % (0.0-12.0); Platelet Count 191 K/mm3 (150-450); Red Blood Count 4.26 M/mm3 (4.1-5.6); Red Cell Distribution Width 12.9 % (11.5-14.0); White Blood Count 12.7 K/mm3 (4.0-10.5)
[2017-12-04 05:58] LABS: Mean Corpuscular Hemoglobin 28.1 pg (26-32)
[2017-12-04 06:15] LABS: ALBUMIN 3.1 g/dL (3.5-5.0); BILIRUBIN,TOTAL 3.1 mg/dL (0.2-1.3); Total Protein 5.7 g/dL (6.3-8.2)
[2017-12-04 06:21] LABS: ALBUMIN 3.4 g/dL (3.5-5.0); ALKALINE PHOSPHATASE 67 U/L (38-126); ANION GAP 10.8 MEQ/L (5-15); BLOOD UREA NITROGEN 11 mg/dL (9-20); CHLORIDE 100 mmol/L (98-107); Calcium 8.7 mg/dL (8.4-10.2); Carbon Dioxide 31 mmol/L (22-30); Creatinine 1 0.78 mg/dL (0.66-1.25); Glucose 123 mg/dL (74-106); Potassium 3.8 mmol/L (3.5-5.1); SGOT/AST 51 U/L (17-59); SGPT/ALT 16 U/L (0-50); SODIUM 138 mmol/L (137-145); Total Protein 6.3 g/dL (6.3-8.2)
[2017-12-04] MEDS: CEPACOL SORE THROAT LOZENGE PO PRN (07:45)
[2017-12-04] MEDS: BENADRYL 50 MG/ML IV PRN ×2 (08:07→12:16)
--- NOTE | 2017-12-04 08:42 | PCM.NOTE ---
Date and Time: 12/04/17 0839 Subjective Assessment: doing well today, still has significant pain but controlled. has been up to the bathroom. no flatus Objective Exam General Appearance: no apparent distress, alert Respiratory Exam: normal breath sounds, lungs clear, No respiratory distress Cardiovascular Exam: regular rate/rhythm, normal heart sounds Gastrointestinal/Abdomen Exam: soft, other (dressing clean, dry and intact) Extremity Exam: normal inspection, normal range of motion OBJECTIVE DATA Vital Signs: Vital Signs - 24 hr Temp Pulse Resp BP Pulse Ox 12/04/17 07:03 97.8 F 71 22 147/64 96 12/04/17 03:00 98.4 F 76 24 162/71 94 L 12/03/17 23:00 98.4 F 73 18 135/59 96 12/03/17 19:52 98.6 F 64 20 166/105 94 L 12/03/17 19:25 68 18 92 L 12/03/17 16:38 98.3 F 66 20 145/65 12/03/17 16:00 71 12/03/17 14:51 73 13 113/48 94 L 12/03/17 11:54 98.7 F 63 14 146/62 95 12/03/17 10:00 60 18 113/72 94 L 12/03/17 09:00 56 L 18 122/60 96 Oxygen-Last 24 hours O2 Percentage 4 Liters = 36% O2 Percentage 4 Liters = 36% O2 Percentage 4 Liters = 36% O2 Percentage 4 Liters = 36% O2 Percentage 4 Liters = 36% O2 Percentage 3 Liters = 32% O2 Percentage 4 Liters = 36% O2 Percentage 5 Liters = 40% Oxygen Flowrate (L/min)-RT 4 Oxygen Flowrate (L/min)-RT 3 Oxygen Flowrate (L/min)-RT 4 Pain Assessment - Last Documented Pain Intensity 3 Pain Scale Used 0-10 Pain Scale Intake and Output: Intake & Output 12/01/17 12/02/17 12/03/17 12/04/17 11:59 11:59 11:59 11:59 Intake Total 1915 2224 Output Total 1665 1520 Balance 250 704 Weight 71.3 kg 75.6 kg Lab Results: Lab Results-Last 24 Hours 12/04/17 12/04/17 12/04/17 Range/Units 05:50 05:50 05:50 WBC 12.7 H (4.0-10.5) K/mm3 RBC 4.26 (4.1-5.6) M/mm3 Hgb 12.0 L (12.5-18.0) gm/dl Hct 37.9 L (42-50) % MCV 89.0 (78-100) fl MCH 28.1 (26-32) pg MCHC 31.7 L (32-36) g/dl RDW 12.9 (11.5-14.0) % Plt Count 191 (150-450) K/mm3 MPV 10.2 H (6-9.5) fl Gran % 79.6 H (36.0-66.0) % Eos # (Auto) 0.09 (0-0.5) Absolute Lymphs (auto) 1.64 (1.0-4.6) Absolute Monos (auto) 0.80 (0.0-1.3) Lymphocytes % 12.9 L (24.0-44.0) % Monocytes % 6.3 (0.0-12.0) % Eosinophils % 0.7 (0.00-5.0) % Basophils % 0.5 (0.0-0.4) % Absolute Granulocytes 10.14 H (1.4-6.9) Basophils # 0.06 (0-0.4) Sodium 138 (137-145) mmol/L Potassium 3.8 (3.5-5.1) mmol/L Chloride 100 (98-107) mmol/L Carbon Dioxide 31 H (22-30) mmol/L Anion Gap 10.8 (5-15) MEQ/L BUN 11 (9-20) mg/dL Creatinine 0.78 (0.66-1.25) mg/dL Estimated GFR > 60.0 ML/MIN Glucose 123 H (74-106) mg/dL Calcium 8.7 (8.4-10.2) mg/dL Total Bilirubin 3.10 H 3.10 H (0.2-1.3) mg/dL Direct Bilirubin 0 (0.0-0.4) mg/dL AST 51 49 (17-59) U/L ALT 16 15 (0-50) U/L Alkaline Phosphatase 67 64 (38-126) U/L Serum Total Protein 6.3 5.7 L (6.3-8.2) g/dL Albumin 3.4 L 3.1 L (3.5-5.0) g/dL Radiology Exams: Radiology Procedures Category Date Time Status ABDOMEN AND PELVIS W/0 CONTRAS [CT] Routine Exams 12/02/17 07:59 Completed Assessment/Plan (1) Perforated sigmoid colon Current Visit: Yes Status: Acute Assessment & Plan: progressing well, still has NG output, REINIER with serosang. output Code(s): K63.1 - PERFORATION OF INTESTINE (NONTRAUMATIC)
[2017-12-04] MEDS: Dextrose 5%-Lr IV Solution 1000 ML 1,000 ML IV SCH ×2 (08:45→21:01)
[2017-12-04] MEDS ORDERED: MEFOXIN 2 GM PREMIX** 2 GM/50 ML ML IV ONE (15:04)
[2017-12-04] MEDS: SUBLIMAZE 100 MCG/2 ML IV PRN ×2 (17:09→23:00)
[2017-12-04] MEDS: Zofran 4 MG/2 ML VIAL IV PRN (22:45)
[2017-12-04] MEDS: APRESOLINE 20 MG/ML INJ IV PRN (22:50)
[2017-12-05] MEDS: Zosyn 3.375GM/100 Ml D5W 3.375 GM/100 ML IVPB IV SCH ×5 (00:15→23:32)
[2017-12-05] MEDS: SUBLIMAZE 100 MCG/2 ML IV PRN ×3 (02:23→16:35)
[2017-12-05 06:08] LABS: BASOPHIL % 0.3 % (0.0-0.4); Basophil (Absolute #) 0.04 (0-0.4); Eosinophil % 0.8 % (0.00-5.0); Granulocytes % 81.9 % (36.0-66.0); Hematocrit 36.9 % (42-50); Hemoglobin 11.8 gm/dl (12.5-18.0); Lymphocyte (Absolute #) 1.37 (1.0-4.6); Lymphocytes % 11.1 % (24.0-44.0); Mean Cell Volume 88.3 fl (78-100); Mean Corpuscular Hemoglobin 28.2 pg (26-32); Mean Platelet Volume 10.7 fl (6-9.5); Monocyte (Absolute #) 0.73 (0.0-1.3); Monocytes % 5.9 % (0.0-12.0); Platelet Count 193 K/mm3 (150-450); Red Blood Count 4.18 M/mm3 (4.1-5.6); Red Cell Distribution Width 12.6 % (11.5-14.0); White Blood Count 12.3 K/mm3 (4.0-10.5)
[2017-12-05 06:25] LABS: ALBUMIN 3.3 g/dL (3.5-5.0); ALKALINE PHOSPHATASE 65 U/L (38-126); ANION GAP 10.2 MEQ/L (5-15); BLOOD UREA NITROGEN 7 mg/dL (9-20); CHLORIDE 99 mmol/L (98-107); Calcium 8.7 mg/dL (8.4-10.2); Carbon Dioxide 30 mmol/L (22-30); Creatinine 1 0.65 mg/dL (0.66-1.25); Glucose 133 mg/dL (74-106); Potassium 3.7 mmol/L (3.5-5.1); SGOT/AST 45 U/L (17-59); SGPT/ALT 17 U/L (0-50); SODIUM 135 mmol/L (137-145); Total Protein 6.2 g/dL (6.3-8.2)
[2017-12-05 06:32] LABS: Direct Bilirubin 0 mg/dL (0.0-0.4)
[2017-12-05] MEDS: Dextrose 5%-Lr IV Solution 1000 ML 1,000 ML IV SCH ×2 (08:18→20:10)
[2017-12-05] MEDS: CEPACOL SORE THROAT LOZENGE PO PRN ×2 (09:06→11:04)
--- NOTE | 2017-12-05 09:08 | PCM.NOTE ---
Date and Time: 12/05/17905 Subjective Assessment: pain is controlled, no nausea this am. walked x 3 yesterday. overall doing well. no flatus Objective Exam General Appearance: no apparent distress, alert Respiratory Exam: normal breath sounds, lungs clear, No respiratory distress Cardiovascular Exam: regular rate/rhythm, normal heart sounds Gastrointestinal/Abdomen Exam: soft, other (mild bowel sounds present), No distention Extremity Exam: normal inspection, normal range of motion OBJECTIVE DATA Vital Signs: Vital Signs - 24 hr Temp Pulse Resp BP BP Pulse Ox 12/05/17 07:19 98.4 F 78 16 159/75 93 L 12/05/17 04:00 98.5 F 72 14 167/82 94 L 12/05/17 00:00 98.8 F 76 16 172/80 94 L 12/04/17 22:00 74 198/89 12/04/17 20:00 89.6 F 72 16 183/80 94 L 12/04/17 19:12 74 17 94 L 12/04/17 15:00 98.4 F 70 20 183/77 96 12/04/17 10:39 97.8 F 78 20 144/80 96 Oxygen-Last 24 hours O2 Percentage 4 Liters = 36% O2 Percentage 4 Liters = 36% Oxygen Flowrate (L/min)-RT 3 Oxygen Flowrate (L/min)-RT 3 Oxygen Flowrate (L/min)-RT 3 Pain Assessment - Last Documented Pain Intensity 5 Pain Scale Used 0-10 Pain Scale Intake and Output: Intake & Output 12/02/17 12/03/17 12/04/17 12/05/17 11:59 11:59 11:59 11:59 Intake Total 1915 2224 2653 Output Total 1665 1520 2865 Balance 250 704 -212 Weight 71.3 kg 75.6 kg 75.1 kg 74.9 kg Lab Results: Lab Results-Last 24 Hours 12/02/17 12/05/17 12/05/17 Range/Units 10:19 05:30 05:30 WBC 12.3 H (4.0-10.5) K/mm3 RBC 4.18 (4.1-5.6) M/mm3 Hgb 11.8 L (12.5-18.0) gm/dl Hct 36.9 L (42-50) % MCV 88.3 (78-100) fl MCH 28.2 (26-32) pg MCHC 32.0 (32-36) g/dl RDW 12.6 (11.5-14.0) % Plt Count 193 (150-450) K/mm3 MPV 10.7 H (6-9.5) fl Gran % 81.9 H (36.0-66.0) % Eos # (Auto) 0.10 (0-0.5) Absolute Lymphs (auto) 1.37 (1.0-4.6) Absolute Monos (auto) 0.73 (0.0-1.3) Lymphocytes % 11.1 L (24.0-44.0) % Monocytes % 5.9 (0.0-12.0) % Eosinophils % 0.8 (0.00-5.0) % Basophils % 0.3 (0.0-0.4) % Absolute Granulocytes 10.10 H (1.4-6.9) Basophils # 0.04 (0-0.4) Sodium 135 L (137-145) mmol/L Potassium 3.7 (3.5-5.1) mmol/L Chloride 99 (98-107) mmol/L Carbon Dioxide 30 (22-30) mmol/L Anion Gap 10.2 (5-15) MEQ/L BUN 7 L (9-20) mg/dL Creatinine 0.65 L (0.66-1.25) mg/dL Estimated GFR > 60.0 ML/MIN Glucose 133 H (74-106) mg/dL Calcium 8.7 (8.4-10.2) mg/dL Total Bilirubin 2.70 H (0.2-1.3) mg/dL Direct Bilirubin 0 (0.0-0.4) mg/dL AST 45 (17-59) U/L ALT 17 (0-50) U/L Alkaline Phosphatase 65 (38-126) U/L Serum Total Protein 6.2 L (6.3-8.2) g/dL Albumin 3.3 L (3.5-5.0) g/dL Surg PTH Diagnosis See Note H Assessment/Plan (1) Perforated sigmoid colon Current Visit: Yes Status: Acute Assessment & Plan: currently on zosyn, wbc stable around 12,000 with no fevers. labs look good, bilirubin improved slightly today. will follow Code(s): K63.1 - PERFORATION OF INTESTINE (NONTRAUMATIC)
[2017-12-05] MEDS: ENOXAPARIN SODIUM SQ SCH (11:03)
[2017-12-05] MEDS: BENADRYL 50 MG/ML IV PRN (12:06)
[2017-12-05] MEDS: Zofran 4 MG/2 ML VIAL IV PRN (19:02)
--- NOTE | 2017-12-05 20:48 | XRAY ---
Indication: NG tube placement. Comparison: None Portable chest demonstrates NG tube tip at the GE junction. Lungs are underinflated with minimal bibasilar atelectasis. Remaining lungs clear. Heart is not enlarged. Bony thorax intact with osteopenia and degenerative changes. Impression: 1. NG tube tip GE junction. 2. Nonacute underinflated chest. Comment: Preliminary interpretation was made by [facility]. No discrepancy.
[2017-12-06] MEDS: Zofran 4 MG/2 ML VIAL IV PRN ×2 (00:26→17:51)
[2017-12-06] MEDS: Zosyn 3.375GM/100 Ml D5W 3.375 GM/100 ML IVPB IV SCH ×3 (05:24→17:19)
[2017-12-06 05:46] LABS: BASOPHIL % 0.6 % (0.0-0.4); Basophil (Absolute #) 0.05 (0-0.4); Eosinophil % 1.5 % (0.00-5.0); Eosinophil (Absolute #) 0.13 (0-0.5); Granulocyte Absolute (ANC) 6.49 (1.4-6.9); Granulocytes % 75.4 % (36.0-66.0); Hematocrit 33.4 % (42-50); Hemoglobin 10.8 gm/dl (12.5-18.0); Lymphocyte (Absolute #) 1.34 (1.0-4.6); Lymphocytes % 15.6 % (24.0-44.0); Mean Cell Volume 88.1 fl (78-100); Mean Corpuscular Hgb Concent. 32.3 g/dl (32-36); Mean Platelet Volume 10.4 fl (6-9.5); Monocyte (Absolute #) 0.59 (0.0-1.3); Monocytes % 6.9 % (0.0-12.0); Platelet Count 208 K/mm3 (150-450); Red Blood Count 3.79 M/mm3 (4.1-5.6); Red Cell Distribution Width 12.6 % (11.5-14.0); White Blood Count 8.6 K/mm3 (4.0-10.5)
[2017-12-06 05:50] LABS: Mean Corpuscular Hemoglobin 28.4 pg (26-32)
[2017-12-06 06:05] LABS: ALBUMIN 2.8 g/dL (3.5-5.0); ALKALINE PHOSPHATASE 59 U/L (38-126); BLOOD UREA NITROGEN 7 mg/dL (9-20); CHLORIDE 98 mmol/L (98-107); Calcium 8.5 mg/dL (8.4-10.2); Carbon Dioxide 29 mmol/L (22-30); Creatinine 1 0.66 mg/dL (0.66-1.25); Glucose 122 mg/dL (74-106); Potassium 3.6 mmol/L (3.5-5.1); SGOT/AST 35 U/L (17-59); SGPT/ALT 15 U/L (0-50); SODIUM 132 mmol/L (137-145); Total Protein 5.4 g/dL (6.3-8.2)
[2017-12-06 06:11] LABS: Direct Bilirubin 0 mg/dL (0.0-0.4)
[2017-12-06] MEDS: Dextrose 5%-Lr IV Solution 1000 ML 1,000 ML IV SCH ×2 (06:44→17:25)
--- NOTE | 2017-12-06 08:50 | PCM.NOTE ---
Date and Time: 12/06/17 0847 Subjective Assessment: pain is controlled, has had some nausea. thinks he has passed a very small amount of flatus Objective Exam General Appearance: no apparent distress, alert Respiratory Exam: normal breath sounds, lungs clear, No respiratory distress Cardiovascular Exam: regular rate/rhythm, normal heart sounds Gastrointestinal/Abdomen Exam: soft, other (soft, decreased bowel sounds present ) Extremity Exam: normal inspection, normal range of motion OBJECTIVE DATA Vital Signs: Vital Signs - 24 hr Temp Pulse Resp BP BP Pulse Ox 12/06/17 08:10 98.1 F 68 20 146/64 96 12/06/17 07:18 20 97 12/06/17 04:15 99.8 F 70 20 180/80 95 12/05/17 23:42 99.5 F 64 18 152/73 95 12/05/17 20:20 62 18 95 12/05/17 19:19 98.2 F 72 16 168/74 93 L 12/05/17 16:31 98.2 F 84 20 166/80 95 12/05/17 11:31 98.1 F 66 20 167/84 93 L Oxygen-Last 24 hours O2 Percentage 4 Liters = 36% O2 Percentage 3 Liters = 32% O2 Percentage 3 Liters = 32% O2 Percentage 3 Liters = 32% O2 Percentage 3 Liters = 32% O2 Percentage 4 Liters = 36% Pain Assessment - Last Documented Pain Intensity 3 Pain Scale Used 0-10 Pain Scale Intake and Output: Intake & Output 12/03/17 12/04/17 12/05/17 12/06/17 11:59 11:59 11:59 11:59 Intake Total 1915 2224 2653 2544 Output Total 1665 1520 3065 2400 Balance 250 704 -412 144 Weight 75.6 kg 75.1 kg 74.9 kg Lab Results: Lab Results-Last 24 Hours 12/06/17 12/06/17 Range/Units 05:25 05:25 WBC 8.6 (4.0-10.5) K/mm3 RBC 3.79 L (4.1-5.6) M/mm3 Hgb 10.8 L (12.5-18.0) gm/dl Hct 33.4 L (42-50) % MCV 88.1 (78-100) fl MCH 28.4 (26-32) pg MCHC 32.3 (32-36) g/dl RDW 12.6 (11.5-14.0) % Plt Count 208 (150-450) K/mm3 MPV 10.4 H (6-9.5) fl Gran % 75.4 H (36.0-66.0) % Eos # (Auto) 0.13 (0-0.5) Absolute Lymphs (auto) 1.34 (1.0-4.6) Absolute Monos (auto) 0.59 (0.0-1.3) Lymphocytes % 15.6 L (24.0-44.0) % Monocytes % 6.9 (0.0-12.0) % Eosinophils % 1.5 (0.00-5.0) % Basophils % 0.6 (0.0-0.4) % Absolute Granulocytes 6.49 (1.4-6.9) Basophils # 0.05 (0-0.4) Sodium 132 L (137-145) mmol/L Potassium 3.6 (3.5-5.1) mmol/L Chloride 98 (98-107) mmol/L Carbon Dioxide 29 (22-30) mmol/L Anion Gap 9.0 (5-15) MEQ/L BUN 7 L (9-20) mg/dL Creatinine 0.66 (0.66-1.25) mg/dL Estimated GFR > 60.0 ML/MIN Glucose 122 H (74-106) mg/dL Calcium 8.5 (8.4-10.2) mg/dL Total Bilirubin 2.00 H (0.2-1.3) mg/dL Direct Bilirubin 0 (0.0-0.4) mg/dL AST 35 (17-59) U/L ALT 15 (0-50) U/L Alkaline Phosphatase 59 (38-126) U/L Serum Total Protein 5.4 L (6.3-8.2) g/dL Albumin 2.8 L (3.5-5.0) g/dL Radiology Exams: Radiology Procedures Category Date Time Status CHEST 1 VIEW (PORTABLE) Stat Exams 12/05/17 09:07 Completed Multi-Disciplinary Progress Notes: Multi-Disciplinary Progress Notes 12/05/17 21:45 Respiratory Note by PhoebeAlfredito WENT TO DO I.S. W/ PT AND HE HAD JUST FALLEN ASLEEP ACCORDING TO PT FAMILY MEMBER. I TOLD HER TO HAVE NURSING CALL ME WHEN PT WOKE UP AND I WLD DO I.S. W / HIM AT THAT TIME. Initialized on 12/05/17 21:45 - END OF NOTE Assessment/Plan (1) Perforated sigmoid colon Current Visit: Yes Status: Acute Assessment & Plan: continue zosyn, no changes at this time. Code(s): K63.1 - PERFORATION OF INTESTINE (NONTRAUMATIC)
[2017-12-06] MEDS: ENOXAPARIN SODIUM SQ SCH (10:41)
[2017-12-06] MEDS ORDERED: Reglan 10 MG/2 ML IV ONE (13:37)
[2017-12-06] MEDS: SUBLIMAZE 100 MCG/2 ML IV PRN (14:34)
[2017-12-07] MEDS: Zosyn 3.375GM/100 Ml D5W 3.375 GM/100 ML IVPB IV SCH ×5 (00:11→23:19)
[2017-12-07] MEDS: APRESOLINE 20 MG/ML INJ IV PRN (05:21)
[2017-12-07] MEDS: Dextrose 5%-Lr IV Solution 1000 ML 1,000 ML IV SCH ×2 (05:25→23:17)
[2017-12-07 06:07] LABS: BASOPHIL % 0.7 % (0.0-0.4); Basophil (Absolute #) 0.05 (0-0.4); Eosinophil % 2.8 % (0.00-5.0); Eosinophil (Absolute #) 0.21 (0-0.5); Granulocyte Absolute (ANC) 5.02 (1.4-6.9); Granulocytes % 67.2 % (36.0-66.0); Hematocrit 33.1 % (42-50); Hemoglobin 10.6 gm/dl (12.5-18.0); Lymphocyte (Absolute #) 1.49 (1.0-4.6); Lymphocytes % 19.9 % (24.0-44.0); Mean Cell Volume 88.7 fl (78-100); Mean Corpuscular Hemoglobin 28.4 pg (26-32); Mean Platelet Volume 10.4 fl (6-9.5); Monocytes % 9.4 % (0.0-12.0); Platelet Count 204 K/mm3 (150-450); Red Blood Count 3.73 M/mm3 (4.1-5.6); Red Cell Distribution Width 12.4 % (11.5-14.0); White Blood Count 7.5 K/mm3 (4.0-10.5)
[2017-12-07 06:23] LABS: ALBUMIN 2.8 g/dL (3.5-5.0); BILIRUBIN,TOTAL 1.7 mg/dL (0.2-1.3); Total Protein 5.4 g/dL (6.3-8.2)
[2017-12-07 06:25] LABS: ALBUMIN 3.1 g/dL (3.5-5.0); ALKALINE PHOSPHATASE 58 U/L (38-126); ANION GAP 9.2 MEQ/L (5-15); BLOOD UREA NITROGEN 7 mg/dL (9-20); CHLORIDE 100 mmol/L (98-107); Calcium 8.7 mg/dL (8.4-10.2); Carbon Dioxide 31 mmol/L (22-30); Creatinine 1 0.76 mg/dL (0.66-1.25); Glucose 117 mg/dL (74-106); Potassium 3.4 mmol/L (3.5-5.1); SGOT/AST 46 U/L (17-59); SGPT/ALT 27 U/L (0-50); SODIUM 137 mmol/L (137-145); Total Protein 5.8 g/dL (6.3-8.2)
--- NOTE | 2017-12-07 08:24 | PCM.NOTE ---
Date and Time: 12/07/17822 Subjective Assessment: patient reports some flatus, pain controlled. still having some hiccups at times but otherwise seems to be doing well. Objective Exam General Appearance: no apparent distress Respiratory Exam: normal breath sounds, lungs clear, No respiratory distress Cardiovascular Exam: regular rate/rhythm, normal heart sounds Gastrointestinal/Abdomen Exam: soft, normal bowel sounds, No distention Extremity Exam: normal inspection, normal range of motion OBJECTIVE DATA Vital Signs: Vital Signs - 24 hr Temp Pulse Resp BP BP Pulse Ox 12/07/17 06:45 63 18 94 L 12/07/17 04:00 97.9 F 65 14 183/84 94 L 12/07/17 00:00 99.2 F 61 16 173/78 95 12/06/17 20:00 98.8 F 61 20 123/95 123/95 95 12/06/17 19:55 65 20 92 L 12/06/17 16:26 69 20 173/79 98 12/06/17 16:00 98.2 F 67 167/84 170/79 96 12/06/17 14:39 96 12/06/17 12:24 98.2 F 67 20 170/79 96 Oxygen-Last 24 hours O2 Percentage 3 Liters = 32% O2 Percentage 3 Liters = 32% O2 Percentage 2 Liters = 28% O2 Percentage 4 Liters = 36% Oxygen Flowrate (L/min)-RT 3 Pain Assessment - Last Documented Pain Intensity 8 Pain Scale Used 0-10 Pain Scale Intake and Output: Intake & Output 12/04/17 12/05/17 12/06/17 12/07/17 11:59 11:59 11:59 11:59 Intake Total 2224 2653 2544 3819 Output Total 1520 3065 2800 3870 Balance 704 -412 -256 -51 Weight 75.1 kg 74.9 kg 75 kg Lab Results: Lab Results-Last 24 Hours 12/07/17 12/07/17 12/07/17 Range/Units 05:43 05:43 05:43 WBC 7.5 (4.0-10.5) K/mm3 RBC 3.73 L (4.1-5.6) M/mm3 Hgb 10.6 L (12.5-18.0) gm/dl Hct 33.1 L (42-50) % MCV 88.7 (78-100) fl MCH 28.4 (26-32) pg MCHC 32.0 (32-36) g/dl RDW 12.4 (11.5-14.0) % Plt Count 204 (150-450) K/mm3 MPV 10.4 H (6-9.5) fl Gran % 67.2 H (36.0-66.0) % Eos # (Auto) 0.21 (0-0.5) Absolute Lymphs (auto) 1.49 (1.0-4.6) Absolute Monos (auto) 0.70 (0.0-1.3) Lymphocytes % 19.9 L (24.0-44.0) % Monocytes % 9.4 (0.0-12.0) % Eosinophils % 2.8 (0.00-5.0) % Basophils % 0.7 (0.0-0.4) % Absolute Granulocytes 5.02 (1.4-6.9) Basophils # 0.05 (0-0.4) Sodium 137 (137-145) mmol/L Potassium 3.4 L (3.5-5.1) mmol/L Chloride 100 (98-107) mmol/L Carbon Dioxide 31 H (22-30) mmol/L Anion Gap 9.2 (5-15) MEQ/L BUN 7 L (9-20) mg/dL Creatinine 0.76 (0.66-1.25) mg/dL Estimated GFR > 60.0 ML/MIN Glucose 117 H (74-106) mg/dL Calcium 8.7 (8.4-10.2) mg/dL Magnesium 1.9 (1.6-2.3) mg/dL Total Bilirubin 1.70 H 1.60 H (0.2-1.3) mg/dL Direct Bilirubin 0 (0.0-0.4) mg/dL AST 47 46 (17-59) U/L ALT 27 27 (0-50) U/L Alkaline Phosphatase 58 58 (38-126) U/L Serum Total Protein 5.4 L 5.8 L (6.3-8.2) g/dL Albumin 2.8 L 3.1 L (3.5-5.0) g/dL Radiology Exams: Radiology Procedures Category Date Time Status CHEST 1 VIEW (PORTABLE) Stat Exams 12/05/17 09:07 Completed Assessment/Plan (1) Perforated sigmoid colon Current Visit: Yes Status: Acute Assessment & Plan: will d/c NG when ok with surgery, otherwise progressing well Code(s): K63.1 - PERFORATION OF INTESTINE (NONTRAUMATIC)
[2017-12-07] MEDS: ENOXAPARIN SODIUM SQ SCH (09:24)
[2017-12-07] MEDS: PROTONIX 40 MG IV IV SCH (09:24)
[2017-12-08] MEDS: APRESOLINE 20 MG/ML INJ IV PRN ×2 (00:44→20:01)
[2017-12-08] MEDS ORDERED: Reglan 10 MG/2 ML IV ONE (02:55)
[2017-12-08] MEDS: Zosyn 3.375GM/100 Ml D5W 3.375 GM/100 ML IVPB IV SCH ×4 (05:52→23:33)
[2017-12-08 06:33] LABS: ALBUMIN 3.2 g/dL (3.5-5.0); BILIRUBIN,TOTAL 1.1 mg/dL (0.2-1.3); Total Protein 6.1 g/dL (6.3-8.2)
--- NOTE | 2017-12-08 08:42 | PCM.NOTE ---
Date and Time: 12/08/17836 Subjective Assessment: Pt continues to have hiccups, although he has been able to sleep for an hour or two intermittently. He has had several episodes this morning and last night where he had a hard time catching his breath for several seconds due to the hiccups. He became quite alarmed at one point. He had several BMs last night. Tolerating CLD. minimal abd pain (some soreness in RLQ). Daughter notes some itchy rash on his back. - Review of Systems Constitutional: No Fever Abdominal/Gastrointestinal: Abdominal Pain Objective Exam General Appearance: no apparent distress, alert Neurologic Exam: oriented x 3, cooperative Skin Exam: normal color, warm, dry Ears, Nose, Throat Exam: moist mucous membranes Respiratory Exam: normal breath sounds, lungs clear, No crackles/rales, No rhonchi, No wheezing Cardiovascular Exam: regular rate/rhythm, normal heart sounds, No murmur Gastrointestinal/Abdomen Exam: soft, normal bowel sounds, tenderness (mild RLQ) , other (midline dressing c/d/i. REINIER drain with serosanguinous drainage in RLQ) , No distention, No mass, No guarding, No rebound Extremity Exam: normal inspection, No pedal edema, No swelling OBJECTIVE DATA Vital Signs: Vital Signs - 24 hr Temp Pulse Resp BP BP Pulse Ox 12/08/17 08:23 93 L 12/08/17 07:13 20 95 12/08/17 03:26 97.8 F 70 18 183/84 151/65 95 12/08/17 00:00 98.1 F 63 18 190/81 92 L 12/07/17 20:14 94 L 12/07/17 20:00 98.7 F 62 20 184/86 95 12/07/17 16:00 98.3 F 64 16 162/88 93 L 12/07/17 12:00 98.3 F 61 18 170/72 90 L Oxygen-Last 24 hours O2 Percentage 3 Liters = 32% O2 Percentage 3 Liters = 32% O2 Percentage 3 Liters = 32% O2 Percentage 3 Liters = 32% Pain Assessment - Last Documented Pain Intensity 3 Pain Scale Used 0-10 Pain Scale Intake and Output: Intake & Output 12/05/17 12/06/17 12/07/17 12/08/17 11:59 11:59 11:59 11:59 Intake Total 2658 4722 1519 991 Output Total 3065 9095 7094 570 Balance -830 -376 -125 747 Weight 74.9 kg 75 kg Lab Results: Lab Results-Last 24 Hours 12/08/17 Range/Units 05:45 Total Bilirubin 1.10 (0.2-1.3) mg/dL Direct Bilirubin 0 (0.0-0.4) mg/dL AST 53 (17-59) U/L ALT 34 (0-50) U/L Alkaline Phosphatase 62 (38-126) U/L Serum Total Protein 6.1 L (6.3-8.2) g/dL Albumin 3.2 L (3.5-5.0) g/dL Multi-Disciplinary Progress Notes: Multi-Disciplinary Progress Notes 12/07/17 10:59 Nutrition Note by Dorothy Nicole F/u Note: Pt remains NPO x 5 days. Recommend alt feeding method if unable to resume po intake. Will monitor and f/u prn. TAUNDREA Cadet Initialized on 12/07/17 10:59 - END OF NOTE 12/07/17 08:55 (created 12/07/17 12:55) Case Management Note by Iva Mirza DISCHARGE PLAN AGAIN REVIEWED WITH PT AND DAUGHTER. DAUGHTER AGAIN EMPHASIZES THAT PRIOR TO SURGERY, PT WAS EXTREMELY ACTIVE AND INDEPENDENT WITH ALL ADL'S, AND NOTED THAT PT HAS NEVER HAD TO USE OXYGEN PRIOR TO THIS VISIT. REPORTS THAT THEIR GOAL IS TO MAKE SURE THAT PT IS BACK TO PRIOR LEVEL OF FNX PRIOR TO DISCHARGE FROM OUR FACILITY. PT/DAUGHTER BOTH REQUEST REHAB STAY IN SWING BED PRIOR TO DISCHARGE HOME. DID DISCUSS SHORT TERM REHAB VIA SWING BED WITH AVERAGE SWING BED STAY OF 7-10 DAYS, WITH MAX OF 14 DAYS. PT/DAUGHTER VERBALIZED UNDERSTANDING, BOTH IN AGREEMENT. ALSO, PROVIDED DAUGHTER WITH INFORMATION ON TRANSPORTATION PROVIDERS AND SITTERS FOR HOME (FOR PT'S IF NEEDED). PT/DAUGHTER DENY ADDNL NEEDS AT PRESENT. WILL CONTINUE TO FOLLOW AND ASSESS FOR ALL DC NEEDS. Initialized on 12/07/17 12:55 - END OF NOTE Assessment/Plan (1) Perforated sigmoid colon Current Visit: Yes Status: Acute Assessment & Plan: Improving, NG is out. Bowels are moving. Tolerating some CLD. Code(s): K63.1 - PERFORATION OF INTESTINE (NONTRAUMATIC) (2) Intractable hiccups Current Visit: Yes Status: Acute Assessment & Plan: With some episodes of difficulty breathing - will try adding low dose gabapentin. Code(s): R06.6 - HICCOUGH
[2017-12-08] MEDS: Dextrose 5%-Lr IV Solution 1000 ML 1,000 ML IV SCH ×2 (10:04→22:14)
[2017-12-08] MEDS: Neurontin 100 MG PO SCH ×3 (10:09→21:35)
[2017-12-08] MEDS: ENOXAPARIN SODIUM SQ SCH (10:11)
[2017-12-08] MEDS: PROTONIX 40 MG IV IV SCH (10:11)
[2017-12-08] MEDS: ANUSOL-HC 2.5% CREAM 30 GM TP PRN (10:17)
[2017-12-08] MEDS ORDERED: SUBLIMAZE 100 MCG/2 ML IV PRN (17:22)
[2017-12-09] MEDS: Zosyn 3.375GM/100 Ml D5W 3.375 GM/100 ML IVPB IV SCH ×2 (05:26→12:18)
[2017-12-09 06:15] LABS: BILIRUBIN,TOTAL 0.8 mg/dL (0.2-1.3); Total Protein 5.5 g/dL (6.3-8.2)
[2017-12-09] MEDS: Dextrose 5%-Lr IV Solution 1000 ML 1,000 ML IV SCH (09:50)
[2017-12-09] MEDS: ENOXAPARIN SODIUM SQ SCH (09:51)
[2017-12-09] MEDS: Neurontin 100 MG PO SCH ×3 (09:51→22:24)
[2017-12-09] MEDS: PROTONIX 40 MG IV IV SCH (09:51)
[2017-12-09] MEDS ORDERED: NORCO 5/325 MG PO PRN (16:52)
--- NOTE | 2017-12-09 16:55 | PCM.NOTE ---
Date and Time: 12/09/17 1654 Subjective Assessment: patient doing well, tolerating soft diet. has had stools, continues to have severe bouts of hiccups Objective Exam General Appearance: no apparent distress, alert Respiratory Exam: normal breath sounds, lungs clear, No respiratory distress Cardiovascular Exam: regular rate/rhythm, normal heart sounds Gastrointestinal/Abdomen Exam: soft, normal bowel sounds, No tenderness Extremity Exam: normal inspection, normal range of motion OBJECTIVE DATA Vital Signs: Vital Signs - 24 hr Temp Pulse Resp BP BP Pulse Ox 12/09/17 16:00 67 20 210/91 93 L 12/09/17 15:42 94 L 12/09/17 12:00 98.7 F 68 20 159/72 96 12/09/17 11:02 98 12/09/17 07:46 98.3 F 63 18 188/78 93 L 12/09/17 04:00 98.7 F 61 18 163/73 94 L 12/09/17 00:00 98.0 F 64 17 152/80 94 L 12/08/17 20:31 65 133/64 12/08/17 20:00 98.8 F 60 18 195/78 94 L 12/08/17 19:59 94 L Pain Assessment - Last Documented Pain Intensity 2 Pain Scale Used 0-10 Pain Scale Intake and Output: Intake & Output 12/07/17 12/08/17 12/09/17 12/10/17 11:59 11:59 11:59 11:59 Intake Total 3819 991 1588 Output Total 3970 600 670 Balance -151 391 918 Weight 75.1 kg 71.9 kg Lab Results: Lab Results-Last 24 Hours 12/09/17 Range/Units 05:08 Total Bilirubin 0.80 (0.2-1.3) mg/dL Direct Bilirubin 0 (0.0-0.4) mg/dL AST 51 (17-59) U/L ALT 35 (0-50) U/L Alkaline Phosphatase 55 (38-126) U/L Serum Total Protein 5.5 L (6.3-8.2) g/dL Albumin 3.0 L (3.5-5.0) g/dL Radiology Exams: Radiology Procedures Category Date Time Status CHEST 1 VIEW (PORTABLE) Routine Exams 12/10/17 07:00 Ordered Assessment/Plan (1) Perforated sigmoid colon Current Visit: Yes Status: Acute Assessment & Plan: doing well, d/c zosyn and lock IV. likely to have REINIER removed tomorrow. plan for swingbed stay for therapy and to get him back to home Code(s): K63.1 - PERFORATION OF INTESTINE (NONTRAUMATIC)
[2017-12-09] MEDS: APRESOLINE 20 MG/ML INJ IV PRN (16:57)
[2017-12-09] MEDS: ANUSOL-HC 2.5% CREAM 30 GM TP PRN (22:24)
[2017-12-10 05:54] LABS: Granulocyte Absolute (ANC) 5.27 (1.4-6.9); Hematocrit 34.1 % (42-50); Mean Cell Volume 88.1 fl (78-100); Mean Corpuscular Hemoglobin 28.4 pg (26-32); Mean Corpuscular Hgb Concent. 32.3 g/dl (32-36); Mean Platelet Volume 10.4 fl (6-9.5); Platelet Count 301 K/mm3 (150-450); Red Blood Count 3.87 M/mm3 (4.1-5.6); White Blood Count 7.6 K/mm3 (4.0-10.5)
[2017-12-10 06:06] LABS: ALBUMIN 3.4 g/dL (3.5-5.0); ALKALINE PHOSPHATASE 61 U/L (38-126); ANION GAP 12.5 MEQ/L (5-15); BLOOD UREA NITROGEN 9 mg/dL (9-20); CHLORIDE 102 mmol/L (98-107); Calcium 8.8 mg/dL (8.4-10.2); Carbon Dioxide 25 mmol/L (22-30); Creatinine 1 0.68 mg/dL (0.66-1.25); Glucose 93 mg/dL (74-106); Potassium 3.2 mmol/L (3.5-5.1); SGOT/AST 65 U/L (17-59); SGPT/ALT 43 U/L (0-50); SODIUM 137 mmol/L (137-145); Total Protein 6.3 g/dL (6.3-8.2)
[2017-12-10] MEDS ORDERED: Klor Con 10 MEQ PO ONE ×2 (07:54→09:30)
[2017-12-10 08:08] LABS: Lymphocytes 23 % (24-44); Monocyte 2 % (0.0-12.0); Neutrophils 75 % (36.-66.); Total Cells Counted 100
[2017-12-10 08:09] LABS: Platelet Estimate NORMAL (NORMAL)
[2017-12-10 08:42] VITALS: PULSE 69; O2SAT 94
--- NOTE | 2017-12-10 08:44 | XRAY ---
Indication: Intractable hiccups. Comparison: December 05, 2017. Portable chest better inflated today and clear again with a few incidental calcified granulomas. Heart and mediastinal structures within normal limits. Bony thorax intact again with osteopenia and degenerative changes. Impression: Nonacute chest with chronic features.
[2017-12-10] MEDS: ENOXAPARIN SODIUM SQ SCH (09:54)
[2017-12-10] MEDS: PROTONIX 40 MG IV IV SCH (09:56)
[2017-12-10] MEDS ORDERED: NEURONTIN 300 MG PO SCH (10:00)
[2017-12-10 12:25] VITALS: BP 174/80
== END 2017-12-10 14:30 | disposition swing bed (61) | DRG 330 ==
LOC: SDC 05:48 → ICU 11:06 → MED SURG 12-03 16:27 → UNDODISIN 12-10 14:30
PROVIDERS: ADMIT Family Medicine; ATTEND Family Medicine
PROC: 0DBN0ZZ Excision of Sigmoid Colon, Open Approach (ICD-10-PCS; principal; 2017-12-02)
PROC: 0DJD8ZZ Inspection of Lower Intestinal Tract, Via Natural or Artificial Opening Endoscopic (ICD-10-PCS; 2017-12-02)
PROC: 0DJD8ZZ Inspection of Lower Intestinal Tract, Via Natural or Artificial Opening Endoscopic (ICD-10-PCS; 2017-12-02)
DX: K63.1 Perforation of intestine (nontraumatic) (principal); K91.71 Accidental puncture and laceration of a digestive system organ or structure during a digestive system procedure; Y65.8 Other specified misadventures during surgical and medical care; Y73.3 Surgical instruments, materials and gastroenterology and urology devices (including sutures) associated with adverse incidents; Z87.11 Personal history of peptic ulcer disease; Z12.11 Encounter for screening for malignant neoplasm of colon; R06.6 Hiccough
CPT/HCPCS: 36415; 36600; 44140; 71045; 74176; 80053; 80076; 82248; 82375; 82803; 83605; 83735; 85025; 85027; 85610; 85730; 86850; 86900; 86901; 86922; 87086; 94760; G0121; 36620; 88304; 88307; 99100; 99140; J0330; J0360; J0694; J1100; J1200; J1650; J2175; J2250; J2270; J2370; J2405; J2543; J2704; J3010; J3475; A9270-GY

== ENCOUNTER 2017-12-10 14:30 | Inpatient (IN) | payer MEDICARE, OTHER ==
[2017-12-10] MEDS ORDERED: NEURONTIN 300 MG PO SCH (15:34)
[2017-12-10] MEDS ORDERED: ANUSOL-HC 2.5% CREAM 30 GM TP PRN (15:34)
[2017-12-10] MEDS ORDERED: FEVERALL 650 MG RC PRN (15:34)
[2017-12-10] MEDS ORDERED: APRESOLINE 20 MG/ML INJ IV PRN (15:34)
[2017-12-10] MEDS ORDERED: TYLENOL 325 MG PO PRN (15:34)
[2017-12-10] MEDS ORDERED: CEPACOL SORE THROAT LOZENGE PO PRN (15:34)
[2017-12-10] MEDS ORDERED: SUBLIMAZE 100 MCG/2 ML IV PRN (15:34)
[2017-12-10] MEDS ORDERED: NORCO 5/325 MG PO PRN (15:34)
[2017-12-10] MEDS ORDERED: Zofran 4 MG/2 ML VIAL IV PRN (15:34)
[2017-12-10] MEDS: NEURONTIN 300 MG PO SCH ×2 (15:56→22:37)
[2017-12-11 06:13] LABS: ALBUMIN 3.3 g/dL (3.5-5.0); ALKALINE PHOSPHATASE 62 U/L (38-126); ANION GAP 11.8 MEQ/L (5-15); BLOOD UREA NITROGEN 13 mg/dL (9-20); CHLORIDE 103 mmol/L (98-107); Calcium 8.6 mg/dL (8.4-10.2); Carbon Dioxide 26 mmol/L (22-30); Creatinine 1 0.74 mg/dL (0.66-1.25); Glucose 84 mg/dL (74-106); Potassium 3.9 mmol/L (3.5-5.1); SGOT/AST 64 U/L (17-59); SGPT/ALT 43 U/L (0-50); SODIUM 137 mmol/L (137-145); Total Protein 6.2 g/dL (6.3-8.2)
--- NOTE | 2017-12-11 08:33 | PCM.NOTE ---
Date and Time: 12/11/17 0831 Subjective Assessment: doing quite well, tolerating breakfast and walked a lot yesterday, hiccups are much better today. Objective Exam General Appearance: no apparent distress, alert Respiratory Exam: normal breath sounds, lungs clear, No respiratory distress Cardiovascular Exam: regular rate/rhythm, normal heart sounds Gastrointestinal/Abdomen Exam: soft, No tenderness, No mass Extremity Exam: normal inspection, normal range of motion OBJECTIVE DATA Vital Signs: Vital Signs - 24 hr Temp Pulse Resp BP Pulse Ox 12/11/17 07:01 97.8 F 77 20 133/82 95 12/10/17 23:23 181/78 12/10/17 20:00 98.3 F 65 18 96 12/10/17 16:30 98.6 F 69 20 174/80 94 L Pain Assessment - Last Documented Pain Intensity 0 Pain Scale Used 0-10 Pain Scale Intake and Output: Intake & Output 12/08/17 12/09/17 12/10/17 12/11/17 11:59 11:59 11:59 11:59 Intake Total 1520 Balance 1520 Weight 71.1 kg Lab Results: Lab Results-Last 24 Hours 12/11/17 Range/Units 05:12 Sodium 137 (137-145) mmol/L Potassium 3.9 (3.5-5.1) mmol/L Chloride 103 (98-107) mmol/L Carbon Dioxide 26 (22-30) mmol/L Anion Gap 11.8 (5-15) MEQ/L BUN 13 (9-20) mg/dL Creatinine 0.74 (0.66-1.25) mg/dL Estimated GFR > 60.0 ML/MIN Glucose 84 (74-106) mg/dL Calcium 8.6 (8.4-10.2) mg/dL Magnesium 2.1 (1.6-2.3) mg/dL Total Bilirubin 0.80 (0.2-1.3) mg/dL AST 64 H (17-59) U/L ALT 43 (0-50) U/L Alkaline Phosphatase 62 (38-126) U/L Serum Total Protein 6.2 L (6.3-8.2) g/dL Albumin 3.3 L (3.5-5.0) g/dL Assessment/Plan (1) Perforated sigmoid colon Current Visit: No Status: Acute Assessment & Plan: progressing well at this time. continue therapy with swingbed Code(s): K63.1 - PERFORATION OF INTESTINE (NONTRAUMATIC) (2) Intractable hiccups Current Visit: No Status: Acute Assessment & Plan: improved with gabapentin Code(s): R06.6 - HICCOUGH
[2017-12-11] MEDS: ENOXAPARIN SODIUM SQ SCH (09:51)
[2017-12-11] MEDS: PROTONIX 40 MG IV IV SCH (09:51)
[2017-12-11] MEDS: NEURONTIN 300 MG PO SCH ×3 (09:51→23:57)
[2017-12-11] MEDS ORDERED: Aplisol ID SCH (10:00)
[2017-12-11] MEDS: Pepcid 20 MG PO SCH (17:58)
[2017-12-12 06:20] LABS: ALBUMIN 3.2 g/dL (3.5-5.0); ALKALINE PHOSPHATASE 55 U/L (38-126); ANION GAP 10.6 MEQ/L (5-15); BLOOD UREA NITROGEN 13 mg/dL (9-20); CHLORIDE 106 mmol/L (98-107); Calcium 8.4 mg/dL (8.4-10.2); Carbon Dioxide 23 mmol/L (22-30); Creatinine 1 0.73 mg/dL (0.66-1.25); Glucose 154 mg/dL (74-106); Potassium 3.2 mmol/L (3.5-5.1); SGOT/AST 49 U/L (17-59); SGPT/ALT 34 U/L (0-50); SODIUM 136 mmol/L (137-145); Total Protein 5.8 g/dL (6.3-8.2)
[2017-12-12 07:32] VITALS: BP 154/72; PULSE 58; O2SAT 94
[2017-12-12] MEDS: NEURONTIN 300 MG PO SCH (10:40)
[2017-12-12] MEDS: ENOXAPARIN SODIUM SQ SCH (10:40)
[2017-12-12] MEDS: PROTONIX 40 MG IV IV SCH (10:40)
[2017-12-12] MEDS: Pepcid 20 MG PO SCH (10:40)
--- NOTE | 2017-12-12 15:42 | PCM.DS ---
Discharge Summary Date of Admission: 12/10/17 14:30 Admitting Physician: ROXANE VEGA Primary Care Provider: ROXANE VEGA Allergies Allergies Sulfa (Sulfonamide Antibiotics) Adverse Reaction (Mild, Verified 12/02/17 06:07) " felt run down" Pt states "maybe" Hospital Summary - Hospital Course Hospital Course: Pt had a colonoscopy outpatient, had a perforation and subsequent colon resection. Afterwards his recovery was good aside from some very severe intractable hiccups that made it hard for him to take in a breath at times. He started neurontin and the hiccups are better, although he says the neurontin makes him a little "foggy." He was admitted to a swing bed for therapy. Pt is feeling much better, no pain, has been walking up and down the halls numerous times, tolerating po. Hiccups are much better. Breathing is fine. Would like to d/c home today and do outpatient therapy as needed. - Vitals & Intake/Output Vital Signs: Vital Signs Temperature 98.5 F 12/12/17 07:31 Pulse Rate 58 L 12/12/17 07:31 Respiratory Rate 18 12/12/17 07:31 Blood Pressure 154/72 12/12/17 07:31 O2 Sat by Pulse Oximetry 94 L 12/12/17 07:31 Intake & Output: Intake & Output 12/10/17 12/11/17 12/12/17 12/13/17 11:59 11:59 11:59 11:59 Intake Total 1760 1080 480 Output Total 1150 Balance 1760 -70 480 Weight 71.1 kg 71.1 kg - Lab Result Diagrams: 12/12/17 05:10 Lab Results-Last 24 Hrs: Lab Results-Last 24 Hours 12/12/17 Range/Units 05:10 Sodium 136 L (137-145) mmol/L Potassium 3.2 L (3.5-5.1) mmol/L Chloride 106 (98-107) mmol/L Carbon Dioxide 23 (22-30) mmol/L Anion Gap 10.6 (5-15) MEQ/L BUN 13 (9-20) mg/dL Creatinine 0.73 (0.66-1.25) mg/dL Estimated GFR > 60.0 ML/MIN Glucose 154 H (74-106) mg/dL Calcium 8.4 (8.4-10.2) mg/dL Magnesium 2.1 (1.6-2.3) mg/dL Total Bilirubin 0.70 (0.2-1.3) mg/dL AST 49 (17-59) U/L ALT 34 (0-50) U/L Alkaline Phosphatase 55 (38-126) U/L Serum Total Protein 5.8 L (6.3-8.2) g/dL Albumin 3.2 L (3.5-5.0) g/dL - Procedures and Test Procedures and Tests throughout Hospitalization: Therapy Orders & Screens 12/10/17 14:51 PT Eval & Treat ( Order) ROUTINE Reason for Eval:: Deconditioning Diagnosis: Deconditioning r/t perforation-sigmoid colon repair Discharge Exam General Appearance: no apparent distress, alert Neurologic Exam: oriented x 3, cooperative Skin Exam: normal color, warm, dry, No rash Ears, Nose, Throat Exam: moist mucous membranes Neck Exam: normal inspection Respiratory Exam: normal breath sounds, lungs clear, No crackles/rales, No rhonchi, No wheezing Cardiovascular Exam: regular rate/rhythm, normal heart sounds, No murmur Gastrointestinal/Abdomen Exam: soft, normal bowel sounds, other (midline wound with georgina intact, c/d/i, very mild superficial erythema near the umbilicus but no induration or exudate), No tenderness, No distention Final Diagnosis/Problem List - Final Discharge Diagnosis/Problem (1) Perforated sigmoid colon Current Visit: No Status: Acute Assessment & Plan: He is doing amazingly well. Will discharge to home today; instructed the family to call surgery Thursday to schedule f/u appt. Call [facility] Thursday for f/u with Dr. Vega. Call therapy Thursday to decide on outpatient therapy schedule. Continue sponge bath currently, f/u with Dr. Vega regarding when pt can start showering. (2) Intractable hiccups Current Visit: No Status: Acute Assessment & Plan: Much better on neurontin. Will discharge to home with neurontin, likely for a couple more weeks, but they are to f/u with Dr. Vega on that. - Discharge Disposition: Home, Self-Care Condition: Good Prescriptions: New Hydrocortisone 2.5% 30 gm [Anusol-Hc 2.5% Cream 30 gm] 1 gm TP QID PRN PRN tube PRN Reason: Itching Hydrocodone Bit/Acetaminophen [[place] 5-325 Tablet] 1 each PO QID #20 tablet MDD 4 Continue Aspirin EC 81 mg [Ecotrin 81 mg] 81 mg PO DAILY Follow up with: ROXANE VEGA MD [Primary Care Provider] - 12/21/17 1:30 pm
[2017-12-22] MEDS ORDERED: Aplisol ID SCH (10:00)
== END 2017-12-12 16:00 | disposition home or self-care (01) | DRG 395 ==
LOC: MED SURG 14:30
PROVIDERS: ADMIT Family Medicine; ATTEND Family Medicine
DX: K63.1 Perforation of intestine (nontraumatic) (principal); R06.6 Hiccough; R41.0 Disorientation, unspecified
CPT/HCPCS: 36415; 80053; 83735; J0360; J1650; 97110-GP; A9270-GY